=== PATIENT | male | born 2000 | race Two or more races ===

== ENCOUNTER 2023-11-29 14:45 | Observation (INO) ==
--- NOTE | 2023-11-29 14:55 | ED Triage Note ---
Date of Service November 29, 2023 Provider in Triage Author: Jung Vela History of Present Illness This patient was briefly evaluated while in triage. An abbreviated physical exam was performed. This patient is a 23-year-old Male who presents to the ED for evaluation of abd pain and vomiting since 1 am with nausea and vomiting. No close contacts with similar symptoms. No diarrhea. Physical Exam GENERAL: 23 year old male. In no acute distress. SKIN: No lesions or rashes. HEART: Regular rate and rhythm. LUNGS: Clear to auscultation. ABDOMEN: Bowel sounds normoactive. No guarding or rigidity. Generalized periumbilical tenderness to palpation. NEURO: Alert and oriented. No deficits. MUSCULOSKELETAL: No deformities to inspection of the extremities. PSYCH: Patient is pleasant and answers all questions appropriately. Initial orders for labs and / or imaging were placed and patient was placed in the waiting area until a bed is available. Please see further documentation for the full ED course.
[2023-11-29 16:00] LABS: Basophils # (auto) 0.03 K/uL (0.00-0.20); Basophils % (auto) 0.2 %; Eosinophils # (auto) 0.01 K/uL (0.00-0.50); Eosinophils % (auto) 0.1 %; Hematocrit (blood only) 50.8 % (42.0-52.0); Hemoglobin 16.8 g/dl (14.0-18.0); Immature Granulocytes # (auto) 0.06 K/uL (0.01-0.20); Immature Granulocytes % (auto) 0.3 %; Lymphocytes # (auto) 1.35 K/uL (1.20-3.40); Lymphocytes % (auto) 7.4 %; Mean Corpuscular Hemoglobin 23.9 pg (25.0-34.0); Mean Corpuscular Hgb Conc 33.1 g/dL (32.0-36.0); Mean Corpuscular Volume 72.4 fL (80.0-100.0); Mean Platelet Volume 9.8 fL (9.4-12.4); Monocytes # (auto) 0.67 K/uL (0.11-0.59); Monocytes % (auto) 3.7 %; Neutrophils # (auto) 16.04 K/uL (1.40-6.50); Neutrophils % (auto) 88.3 %; Platelet Count 378 K/uL (130-400); RDW Coefficient of Variation 16.6 % (11.5-14.5); RDW Standard Deviation 37.2 fL (36.4-46.3); Red Blood Count 7.02 M/uL (4.70-6.10); White Blood Count 18.16 K/ul (4.8-10.8)
[2023-11-29 16:21] LABS: Albumin Globulin Ratio 1.5 (0.9-2); Albumin Level 5.2 gm/dl (3.4-5.0); BUN Creatinine Ratio 12.8 (10-20); Bilirubin,Total 0.5 mg/dl (0.2-1.0); Calcium 10.4 mg/dl (8.6-10.3); Creatinine Clr Calc Pharmacy 210.5 ml/min; Est GFR (African American) 148.5 ml/min; Est GFR (Non-African American) 128.1 ml/min; Globulin 3.5 gm/dl (2.5-4.0); Potassium 3.9 mmol/L (3.5-5.1); Total Protein 8.7 gm/dl (6.0-8.3)
[2023-11-29] MEDS: OPTIRAY 320 125ml IV ONE (18:31)
--- NOTE | 2023-11-29 19:09 | Emergency Department Note ---
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 He reports he attempted to eat something this afternoon at 1300 but vomited it immediately and so has not been able to eat or drink. He denies fevers. He denies any cough or congestion. Denies any diarrhea. He denies any medical problems and does not take medications on regular basis. He reports his abdominal pain had subsided while waiting in the emergency department for testing to result. Of note, the patient did arrive to emergency department during time of high volume, acuity and prolonged emergency department waiting times. Critical pathways initiated from triage. On evaluation the patient is uncomfortable no distress, afebrile heart in 100s and blood pressure 160s/70s in the setting of discomfort but is otherwise stable. He appears clinically dry. He has mild point tenderness in the right lower quadrant without guarding or rebound. WBC 18 K with neutrophil predominance with no left shift. H/H and platelets within normal limits. Chemistry without metabolic acidosis. Electrolytes and LFTs without significant abnormality. Lipase not elevated. CT of the abdomen pelvis was completed and demonstrates evidence of uncomplicated appendicitis. I did update the patient and informed him of plan for general surgery consultation. Case was discussed with Chavez Smith, general surgery PAC with Dr. Turner, general surgery. The patient had decided that he did not want to proceed with surgery initially but did agree with general surgery to be admitted to the hospital for IV antibiotics. IV Zosyn ordered per discussion with general surgery. Appreciate consultation and recommendations. Further management per surgery service. Triage Nursing notes reviewed and agree them. Prior/external medical records reviewed Vital Signs: reviewed Differential diagnosis: Appendicitis, testicular torsion, infections, diverticulitis, UTI, obstruction, mesenteric ischemia, aortic pathology, inflammatory bowel disease, renal colic, PUD, pancreatitis, biliary pathology, hernia, volvulus, constipation, as well as other pathologies. ER treatment provided: See below. Diagnostics interpreted by me: Cardiac Monitoring: An order for continuous cardiac monitoring was placed and demonstrated sinus tachycardia, 110 bpm, no ectopy. Laboratory studies: See below Imaging studies: See below Consultation(s): Chavez Smith, general surgery PAC with Dr. 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 He reports he attempted to eat something this afternoon at 1300 but vomited it immediately and so has not been able to eat or drink. He denies fevers. He denies any cough or congestion. Denies any diarrhea. He denies any medical problems and does not take medications on regular basis. He reports his abdominal pain had subsided while waiting in the emergency department for testing to result. ROS: See above HPI for pertinent positives & negatives. A total of 10 systems reviewed and were otherwise negative. VITALS:See Below PHYSICAL EXAMINATION: GENERAL: Awake, alert, uncomfortable-appearing, in no distress, BMI 42.3. HENT: Normocephalic, atraumatic. Oropharynx with dry mucous membranes and otherwise unremarkable. EYES: Normal conjunctiva. Sclera non-icteric. NECK: Supple. No nuchal rigidity. FROM. No JVD. RESPIRATORY: Clear to auscultation. CARDIAC: Regular rate, normal rhythm. Extremities warm and well perfused. Pulses equal. ABDOMEN: Soft, non-distended. Mild point tenderness in the right lower quadrant without guarding or rebound. No rebound or guarding. No masses. RECTAL: Deferred. MUSCULOSKELETAL: Chest examination reveals no tenderness. The back is symmetrical on inspection without obvious abnormality. There is no CVA tenderness to palpation. No joint edema. LOWER EXTREMITIES: Calves are equal size bilaterally and non-tender. No edema. No discoloration. NEURO: Normal sensorium. No sensory or motor deficits noted. SKIN: No rash or jaundice noted. Adalberto Allen MD Past Med/Surg History Medical History BMI 40.0-44.9, adult Social History Smoking Status: Never smoker Hx Alcohol Use: No Hx Substance Use: No Preferred Language: Estonian Current Living Situation: Other Current Living Situation Comment: College, lives with a roommate Feels Safe at Home: Yes Safety Concerns: Feels Safe At This Time Allergies Allergies Allergy/AdvReac Type Severity Reaction Status Date / Time No Known Allergies Allergy Verified 11/29/23 19:13 Home Meds Home Medications Medication Instructions Recorded Confirmed cholecalciferol (vitamin D3) 125 250 mcg PO DAILY 11/29/23 11/29/23 mcg (5,000 unit) tablet (Vitamin D3) Results & Data (ED) Vital Signs Vital Signs - 24 hr 11/29/23 14:52 11/29/23 18:58 Temperature 36.8 C Temperature Source Temporal Artery Scan Pulse Rate 110 H Pulse Rate [Finger] 105 H Respiratory Rate 18 16 Respiratory Depth Normal Blood Pressure 143/81 H Blood Pressure [Right Arm] 160/79 H Blood Pressure Mean 101 Blood Pressure Mean [Right Arm] 106 Blood Pressure Position Sitting Pulse Oximetry 97 98 Oxygen Delivery Method Room Air Room Air Sepsis Recent Fever Within 48 Hours No Sepsis New/Unexplained Change in Mental Status No Sepsis Action Taken by Nursing No Action Required Laboratory Data Attestation: I reviewed the patient's lab results. 11/29/23 15:30 11/29/23 15:30 Lab Results 11/29/23 Range/Units 15:30 WBC 18.16 H (4.8-10.8) K/ul RBC 7.02 H (4.70-6.10) M/uL Hgb 16.8 (14.0-18.0) g/dl Hct 50.8 (42.0-52.0) % MCV 72.4 L (80.0-100.0) fL MCH 23.9 L (25.0-34.0) pg MCHC 33.1 (32.0-36.0) g/dL RDW Std Deviation 37.2 (36.4-46.3) fL RDW Coeff of Jose 16.6 H (11.5-14.5) % Plt Count 378 (130-400) K/uL MPV 9.8 (9.4-12.4) fL Immature Gran % (Auto) 0.3 % Neut % (Auto) 88.3 % Lymph % (Auto) 7.4 % Petroleum % (Auto) 3.7 % Eos % (Auto) 0.1 % Baso % (Auto) 0.2 % Neut # (Auto) 16.04 H (1.40-6.50) K/uL Lymph # (Auto) 1.35 (1.20-3.40) K/uL Petroleum # (Auto) 0.67 H (0.11-0.59) K/uL Eos # (Auto) 0.01 (0.00-0.50) K/uL Baso # (Auto) 0.03 (0.00-0.20) K/uL Immature Gran # (Auto) 0.06 (0.01-0.20) K/uL Sodium 137 (136-145) mmol/L Potassium 3.9 (3.5-5.1) mmol/L Chloride 98 (98-107) mmol/L Carbon Dioxide 26 (21-32) mmol/L Anion Gap 13 H (3-11) BUN 10 (6-23) mg/dl Creatinine 0.78 (0.6-1.4) mg/dl Est Cr Clr Drug Dosing 210.5 ml/min Est GFR ( Amer) 148.5 ml/min Est GFR (Non-Af Amer) 128.1 ml/min BUN/Creatinine Ratio 12.8 (10-20) Glucose 115 H (70-99(Fasting)) mg/dl Calcium 10.4 H (8.6-10.3) mg/dl Total Bilirubin 0.5 (0.2-1.0) mg/dl AST 20 (13-39) U/L ALT 29 (7-52) U/L Alkaline Phosphatase 74 (34-104) U/L Total Protein 8.7 H (6.0-8.3) gm/dl Albumin 5.2 H (3.4-5.0) gm/dl Globulin 3.5 (2.5-4.0) gm/dl Albumin/Globulin Ratio 1.5 (0.9-2) Lipase 6 L (11-82) U/L Administered Medications Sodium Chloride (Nss) 1,000 mls @ 100 mls/hr IV .Q10H DEEPTHI Stop: 12/29/23 20:14 Last Admin: 11/29/23 22:04 Dose: 100 mls/hr Documented By: NAVDEEP Discontinued Medications Sodium Chloride (Nss) 1,000 mls @ 999 mls/hr IV .Q1H1M ONE Stop: 11/29/23 20:05 Last Infusion: 11/29/23 20:32 Dose: Infused Documented By: Admin: 11/29/23 19:28 Dose: 999 mls/hr Documented By: BE Acetaminophen (Ofirmev) 1,000 mg in 100 mls @ 400 mls/hr IV NOW STA Stop: 11/29/23 19:19 Last Infusion: 11/29/23 19:47 Dose: Infused Documented By: Admin: 11/29/23 19:32 Dose: 400 mls/hr Documented By: BE Cefoxitin Sodium (Mefoxin) 2,000 mg in 60 mls @ 100 mls/hr IV NOW STA Stop: 11/29/23 20:27 Last Admin: 11/29/23 20:06 Dose: Not Given Documented By: BE Piperacillin Sod/Tazobactam Sod (Zosyn) 4.5 gm in 100 mls @ 200 mls/hr IV NOW ONE Stop: 11/29/23 20:34 Last Infusion: 11/29/23 21:08 Dose: Infused Documented By: Admin: 11/29/23 20:31 Dose: 200 mls/hr Documented By: BE Piperacillin Sod/Tazobactam Sod (Zosyn) 4.5 gm in 100 mls @ 200 mls/hr IV NOW ONE Stop: 11/29/23 20:33 Last Admin: 11/29/23 20:31 Dose: Not Given Documented By: BE Ioversol (Optiray 320 125ml) 117 ml IV ONCE ONE Stop: 11/29/23 18:31 Last Admin: 11/29/23 18:31 Dose: 117 ml Documented By: MARGARITA Ondansetron HCl (Ondansetron Inj 2 Mg/Ml 2 Ml Vial) 4 mg IV NOW STA Stop: 11/29/23 19:07 Last Admin: 11/29/23 19:30 Dose: 4 mg Documented By: BE Imaging Data Radiologist's Impression: Abdomen/Pelvis CT 11/29/23 14:[address] WITH IV CONTRAST CT DOSE: 1521.46 mGy.cm HISTORY: Acute periumbilical abdominal pain Periumbilical abd pain TECHNIQUE: Multiaxial CT images of the abdomen and pelvis were performed following the IV administration of 117 cc of Optiray, A dose lowering technique was utilized adhering to the principles of ALARA. COMPARISON STUDY: None. FINDINGS: The lung bases are clear. The liver, spleen, gallbladder, pancreas, kidneys, and adrenal glands are within normal limits. No bowel obstruction. The appendix is hyperemic, dilated and fluid-filled measuring up to 12 mm with adjacent inflammatory stranding. Trace free pelvic fluid. The pelvic organs are unremarkable. No suspicious lytic or blastic osseous lesions. IMPRESSION: Acute uncomplicated appendicitis. No pneumoperitoneum or abscess. ACT 112: Negative or not required by law. The above report was generated using voice recognition software. It may contain grammatical, syntax or spelling errors. Electronically signed by: Manuel Ibrahim M.D. 11/29/2023 7:05 PM Discharge Plan Visit Data Chief Complaint: Abdominal Pain Stated Complaint: ABD PAIN ED Provider: Adalberto Allen Discharge Problem: Appendicitis, Leukocytosis, Nausea & vomiting Patient Disposition: Admitted As Inpatient Discharge Instructions Interventions: ED Discharge Assessment Last Done: 11/29/23 21:10 Discharge Problem: Appendicitis Qualifiers: Appendicitis type: acute appendicitis Acute appendicitis type: unspecified acute appendicitis type Qualified Code(s): K35.80 - Unspecified acute appendicitis Leukocytosis Qualifiers: Leukocytosis type: unspecified Qualified Code(s): D72.829 - Elevated white blood cell count, unspecified Nausea & vomiting Qualifiers: Vomiting type: unspecified Qualified Code(s): R11.2 - Nausea with vomiting, unspecified
--- NOTE | 2023-11-29 19:09 | CT Scan Report ---
ABDOMEN AND PELVIS CT WITH IV CONTRAST CT DOSE: 1521.46 mGy.cm HISTORY: Acute periumbilical abdominal pain Periumbilical abd pain TECHNIQUE: Multiaxial CT images of the abdomen and pelvis were performed following the IV administrat ion of 117 cc of Optiray, A dose lowering technique was utilized adhering to the principles of ALARA . COMPARISON STUDY: None. FINDINGS: The lung bases are clear. The liver, spleen, gallbladder, pancreas, kidneys, and adrenal gl ands are within normal limits. No bowel obstruction. The appendix is hyperemic, dilated and fluid-betty led measuring up to 12 mm with adjacent inflammatory stranding. Trace free pelvic fluid. The pelvic o rgans are unremarkable. No suspicious lytic or blastic osseous lesions. IMPRESSION: Acute uncomplicated appendicitis. No pneumoperitoneum or abscess. ACT 112: Negative or not required by law. The above report was generated using voice recognition software. It may contain grammatical, syntax o r spelling errors. Electronically signed by: Manuel Ibrahim M.D. 11/29/2023 7:05 PM
[2023-11-29] MEDS: SODIUM CHLORIDE 0.9% 1,000 ML IV ONE (19:28)
[2023-11-29] MEDS: ONDANSETRON INJ 2 MG/ML 2 ML VIAL IV STA (19:30)
[2023-11-29] MEDS: ACETAMINOPHEN 1,000 MG/100 ML VIAL IV STA (19:32)
[2023-11-29] MEDS ORDERED: ONDANSETRON INJ 2 MG/ML 2 ML VIAL IV PRN (20:04)
[2023-11-29] MEDS ORDERED: MoRPHine SULFATE 4 MG/ML 1 ML CARP\\VIAL IV PRN (20:04)
[2023-11-29] MEDS ORDERED: ACETAMINOPHEN 1,000 MG/100 ML VIAL IV PRN (20:04)
[2023-11-29] MEDS: cefOXitin 2,000 MG/60 ML BAG IV STA (20:06)
--- NOTE | 2023-11-29 20:17 | History & Physical Report ---
<Statement entered by Zo Turner, DO - 11/30/23 03:09> This case was discussed with the surgical PA. Patient does not wish to undergo appendectomy at this time and wishes to try antibiotic therapy. Will f/u am labs and exam. Date of Service November 29, 2023 Assessment & Plan (1) Appendicitis: Plan: Due to the patient's clinical presentation, labs, and imaging he will be admitted to the hospital proceeding as follows: Analgesia will be provided Antiemetics to be provided IV fluids will be provided for hydration N.p.o. status will be implemented We will commence antibiotics in form of Zosyn and continue these on a scheduled basis We will repeat labs in the morning I had a discussion with the patient at the bedside informing him that he is known to have an acute appendicitis by CAT scan. This coupled with his elevated white blood cell count would prompt a recommendation that he undergo appendectomy. After discussion with the patient he does not wish to undergo surgical intervention. I did discuss with the patient that without surgical intervention there is a possibility that his appendix could burst but I cannot predict this in any reliable fashion. He did express his understanding. I discussed with the patient that if his appendix would burst this would require prolonged hospitalization with intravenous antibiotics and could be complicated by issues such as ileus and also make any subsequent surgical intervention more difficult I did discuss with the patient that although he does not wish to have surgery I would then recommend he be admitted to the hospital for intravenous antibiotics and he is agreeable to this. I did discuss with the patient again that without surgical intervention and despite the use of intravenous antibiotics he could still have a ruptured appendix that I again cannot predict in any reliable fashion. I discussed with the patient that pending how his clinical course unfolds he may require a prolonged hospitalization with intravenous antibiotics if he continues to refuse surgery. I also discussed with him that my attending physician, Dr. Soto will evaluate the patient in the morning and make further recommendations based on his clinical course as elaine notes that she may recommend surgery tomorrow but this is yet to be determined. Will use SCDs for DVT prevention, no chemical means due to planned surgery He will be a level 1 full code The above plan was discussed with my attending physician Dr. 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 Patient notes that approximately 1:00 AM on 11/29/2023 he developed some periumbilical abdominal pain that has since shifted to the right lower quadrant. He does not note any radiation of the pain. He does not report any modifying factors specifically stating that the pain was not much more severe with movement. He did have associated nausea and vomiting most recently at approximate 1:00 PM when he tried to eat a rice cake (this was his most recent oral intake). He denies any fevers, shakes, or chills. He has never had any abdominal surgery in the past. Since arrival to the hospital patient has had labs and imaging which I independent reviewed. CT scan of the abdomen pelvis was performed that showed the patient had a hyperemic appendix which was dilated and fluid-filled measuring approximately 12 mm. There is adjacent inflammatory stranding noted. Interpreting radiologist felt that this represented an acute uncomplicated appendicitis. There is no evidence of pneumoperitoneum or abscess. Labs included CBC her white blood cell count was elevated to 18.1. Hemoglobin and hematocrit along with the platelet count were all normal. Chemistry profile showed sodium and potassium as well as the BUN and creatinine were normal. The patient did not have any elevation of his LFTs or lipase. At the time of my interview the patient was resting comfortably in bed and he was in no distress. Concerning past medical history the patient says that he is known to have insulin resistance which she treats with diet and does not take any medications Concerning PSHx has never had surgery He denies any allergies Concerning medicines he reports that he only takes a vitamin D supplement daily Concerning social history he does not smoke or vape Concerning family history he notes that diabetes runs in his family Allergies Allergy/AdvReac Type Severity Reaction Status Date / Time No Known Allergies Allergy Verified 11/29/23 19:13 Home Medications Medication Instructions Recorded Confirmed Type cholecalciferol (vitamin D3) 125 250 mcg PO DAILY 11/29/23 11/29/23 History mcg (5,000 unit) tablet (Vitamin D3) Past Med/Surg History Social History Smoking Status: Never smoker Preferred Language: Tamaz[place] Feels Safe at Home: Yes Review of Systems Constitutional: no fever and no chills Eyes: + corrective lenses Ear, Nose, Mouth, Throat: no hearing loss Respiratory: no cough and no dyspnea Cardiovascular: no chest pain Gastrointestinal: as per Subjective / HPI Genitourinary: no dysuria Musculoskeletal: no back pain Integumentary: no rash Neurologic: no localized weakness Physical Exam Constitutional: WD/WN, vitals as above + obese Eyes: no conjunctival abnormality ENMT: Ears: no hearing impairment and no external ear abnormality Mouth: no oropharynx abnormality Neck: trachea midline Respiratory: Breath sounds are present bilaterally without rales, rhonchi, or wheezing. He was not using accessory muscles to aid in respiration. Breath sounds were slightly decreased at the bases Cardiovascular: Rate/Rhythm: regular rate and regular rhythm Gastrointestinal (Abdomen): Abdomen is rotund and soft. It is nonrigid. Bowel sounds are present. There is no rebound tenderness or guarding. The patient only had minute tenderness with very deep and forceful palpation in the right lower quad Musculoskeletal: No calf tenderness Skin: no rashes Neurologic: moves all extremities Psychiatric: A+Ox3, euthymic affect Results & Data Results & Data Vital Signs (Past 12 Hours) Vital Signs Temp Pulse Pulse Resp BP BP Pulse Ox 11/29/23 18:58 105 H 16 160/79 H 98 11/29/23 14:52 36.8 C 110 H 18 143/81 H 97 O2 Del Method 11/29/23 18:58 Room Air 11/29/23 14:52 Room Air PG Care Time/CCT Total # of Minutes Spent Total Time Spent with Patient: Total time spent is greater than 50% in coordination of care (as documented) at patient's floor/unit and/or counseling patient: Coding Level of Care Code 97362 INT INP/OBS CARE 3/75MIN Diagnoses Appendicitis K37
[2023-11-29] MEDS: PIPERACILLIN/TAZOBACTAM 4.5 GM/100 ML BAG IV ONE ×2 (20:31)
[2023-11-29] MEDS: SODIUM CHLORIDE 0.9% 1,000 ML IV SCH (22:04)
[2023-11-30] MEDS: PIPERACILLIN/TAZOBACTAM 4.5 GM in DEXTROSE 5% MINI-B 100 ML IV SCH (01:54)
[2023-11-30 07:29] LABS: Basophils # (auto) 0.05 K/uL (0.00-0.20); Basophils % (auto) 0.4 %; Eosinophils # (auto) 0.12 K/uL (0.00-0.50); Eosinophils % (auto) 0.9 %; Hemoglobin 15.8 g/dl (14.0-18.0); Immature Granulocytes # (auto) 0.06 K/uL (0.01-0.20); Immature Granulocytes % (auto) 0.4 %; Lymphocytes # (auto) 3.57 K/uL (1.20-3.40); Lymphocytes % (auto) 25.4 %; Mean Corpuscular Hemoglobin 23.2 pg (25.0-34.0); Mean Corpuscular Volume 74.9 fL (80.0-100.0); Mean Platelet Volume 9.7 fL (9.4-12.4); Monocytes % (auto) 6.4 %; Neutrophils # (auto) 9.37 K/uL (1.40-6.50); Neutrophils % (auto) 66.5 %; Platelet Count 365 K/uL (130-400); RDW Coefficient of Variation 17.1 % (11.5-14.5); Red Blood Count 6.81 M/uL (4.70-6.10); White Blood Count 14.07 K/ul (4.8-10.8)
[2023-11-30 07:42] LABS: BUN Creatinine Ratio 9.2 (10-20); Calcium 9.3 mg/dl (8.6-10.3); Creatinine Clr Calc Pharmacy 167.5 ml/min; Est GFR (African American) 126.3 ml/min; Potassium 3.6 mmol/L (3.5-5.1)
--- NOTE | 2023-11-30 08:55 | Surgery Progress Note ---
Date of Service November 30, 2023 Assessment & Plan (1) Uncomplicated acute appendicitis: Plan: Patient is HD stable, without F/C and is improved. Leukocytosis is improved from ED presentation. Patient continues to refuse surgery after I spoke with him this am regarding standard treatment practices currently in the [place] in a young, healthy patient. I also explained the risk of failure to respond to antibiotics alone although there is a low likelihood of this happening in his case and he will probably do ok with this approach. That being said, I also made him aware that there is a high risk that he will develop appendicitis again and at that time could suffer a rupture. For this reason, if he improves completely with antibiotics alone, I have recommended an interval appendectomy in 6 weeks after this is resolved. He expressed understanding and had no questions. Continue IV antibiotics for now and keep NPO for today with IVF. F/U am labs tomorrow. Admission and Anticipated Discharge Date Admission Date: November 29, 2023 Subjective Patient was seen this am. He was sleeping well on his abdomen when I entered the room this am and when awakened to ask how he felt he says he feels good. He states he still does not want surgery and would prefer to proceed with antibiotics only. Denies any complaints at all. Physical Exam Constitutional: + obese; no acute distress, not in distr ess and not diaphoretic Respiratory: normal respiratory effort; no respiratory distress, no labored breathing and does not use accessory muscles Gastrointestinal (Abdomen): minimal to no TTP Results & Data Vital Signs (Past 12 Hours) Vital Signs Temp Pulse Resp BP Pulse Ox O2 Del Method 11/30/23 07:47 36.7 C 61 18 121/78 93 Room Air 11/30/23 01:58 36.8 C 85 16 133/74 95 Room Air 11/29/23 21:00 99 H 18 134/97 98 Room Air Laboratory Results WBC 14,000 today from 18,000 PG Care Time/CCT Total # of Minutes Spent Total Time Spent with Patient: Total time spent is greater than 50% in coordination of care (as documented) at patient's floor/unit and/or counseling patient: [place] [address] SUB INP/OBS CARE 1/25MIN Patient Type Established Diagnoses Uncomplicated acute appendicitis K35.80
[2023-12-01 07:42] LABS: Basophils # (auto) 0.06 K/uL (0.00-0.20); Basophils % (auto) 0.7 %; Eosinophils # (auto) 0.14 K/uL (0.00-0.50); Eosinophils % (auto) 1.5 %; Hematocrit (blood only) 46.5 % (42.0-52.0); Hemoglobin 14.9 g/dl (14.0-18.0); Immature Granulocytes # (auto) 0.02 K/uL (0.01-0.20); Immature Granulocytes % (auto) 0.2 %; Lymphocytes # (auto) 2.59 K/uL (1.20-3.40); Lymphocytes % (auto) 28.2 %; Mean Corpuscular Hemoglobin 23.6 pg (25.0-34.0); Mean Corpuscular Volume 73.7 fL (80.0-100.0); Mean Platelet Volume 9.5 fL (9.4-12.4); Monocytes # (auto) 0.76 K/uL (0.11-0.59); Monocytes % (auto) 8.3 %; Neutrophils # (auto) 5.61 K/uL (1.40-6.50); Neutrophils % (auto) 61.1 %; Platelet Count 270 K/uL (130-400); RDW Coefficient of Variation 15.9 % (11.5-14.5); RDW Standard Deviation 39.2 fL (36.4-46.3); Red Blood Count 6.31 M/uL (4.70-6.10); White Blood Count 9.18 K/ul (4.8-10.8)
[2023-12-01 08:23] LABS: BUN Creatinine Ratio 11.1 (10-20); Calcium 8.9 mg/dl (8.6-10.3); Creatinine Clr Calc Pharmacy 182.4 ml/min; Est GFR (Non-African American) 120.8 ml/min; Potassium 3.9 mmol/L (3.5-5.1)
--- NOTE | 2023-12-01 12:22 | Surgery Progress Note ---
Date of Service December 01, 2023 Assessment & Plan (1) Uncomplicated acute appendicitis: Plan: Patient here with abdominal pain, CT with evidence of acute appendicitis Patient refused surgery despite multiple discussions He is currently doing well on IV abx (zosyn). WBC normalized to 9. Vitals stable and patient afebrile Abdomen soft and non tender Will advance diet and see how he fairs, if goes well dispo later today on a course of po abx discussed with dr. resendiz who would like to see the pt in follow up in about 2 weeks time return precautions reviewed with patient Admission and Anticipated Discharge Date Admission Date: November 29, 2023 Subjective Patient reports feeling well. Denies pain. no nausea/vomiting. wants to go home Physical Exam Physical Exam: awake/alert, no distress Gastrointestinal (Abdomen): Percussion/Palpation: abdomen soft; abdomen nontender Results & Data Vital Signs (Past 12 Hours) Vital Signs Temp Pulse Resp BP Pulse Ox O2 Del Method 12/01/23 07:20 98.1 F 81 16 121/67 97 Room Air PG Care Time/CCT Total # of Minutes Spent Total Time Spent with Patient: Total time spent is greater than 50% in coordination of care (as documented) at patient's floor/unit and/or counseling patient: Coding Level of Care Code 43630 SUB INP/OBS CARE 25MIN Diagnoses Uncomplicated acute appendicitis K35.80
--- NOTE | 2023-12-05 07:50 | Discharge Summary ---
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 Patient notes that approximately 1:00 AM on 11/29/2023 he developed some periumbilical abdominal pain that has since shifted to the right lower quadrant. He does not note any radiation of the pain. He does not report any modifying factors specifically stating that the pain was not much more severe with movement. He did have associated nausea and vomiting most recently at approximate 1:00 PM when he tried to eat a rice cake (this was his most recent oral intake). He denies any fevers, shakes, or ch ills. He has never had any abdominal surgery in the past. Since arrival to the hospital patient has had labs and imaging which I independent reviewed. CT scan of the abdomen pelvis was performed that showed the patient had a hyperemic appendix which was dilated and fluid-filled measuring approximately 12 mm. There is adjacent inflammatory stranding noted. Interpreting radiologist felt that this represented an acute uncomplicated appendicitis. There is no evidence of pneumoperitoneum or abscess. Labs included CBC her white blood cell count was elevated to 18.1. Hemoglobin and hematocrit along with the platelet count were all normal. Chemistry profile showed sodium and potassium as well as the BUN and creatinine were normal. The patient did not have any elevation of his LFTs or lipase. At the time of my interview the patient was resting comfortably in bed and he was in no distress. Concerning past medical history the patient says that he is known to have insulin resistance which she treats with diet and does not take any medications Concerning PSHx has never had surgery He denies any allergies Concerning medicines he reports that he only takes a vitamin D supplement daily Concerning social history he does not smoke or vape Concerning family history he notes that diabetes runs in his family Principal Diagnosis acute appendicitis Discharge Exam awake/alert, no distress Gastrointestinal (Abdomen) Percussion/Palpation: abdomen soft; abdomen nontender Discharge Data Allergies Allergy/AdvReac Type Severity Reaction Status Date / Time No Known Allergies Allergy Verified 11/29/23 19:13 Consultations 11/29/23 20:13 ED Decision to Admit Stat Ordered Studies 11/29/23 14:55 CT abd pelvis IV con only Stat Hospital Course (1) Uncomplicated acute appendicitis: This is a 23yM with no significant past medical history who presented to the [facility] on 11/29/23 with complaints of abdominal pain. WBC [address] a/p was performed that revealed evidence of acute uncomplicated appendicitis. Patient had mild tenderness to palpation in the RLQ. The patient was made NPO with IVF, started on IV abx, and was admitted under the surgical service. After discussions with the patient regarding treatment options, including surgical intervention, he opted for conservative management with IV abx and refused surgical intervention. The risks of this decision were discussed including but not limited to perforation, abscess formation, prolonged hospitalization, sepsis, etc. Patient expressed understanding. He was maintained on IV zosyn and bowel rest. Patient's WBC downtrended during his hospitalization. On 12/01 WBC 9 and vitals signs stable, pt afebrile. He was trialed on a regular diet which he tolerated well without issues. His presenting symptoms were improved as he was without nausea/vomiting or pain. On exam abdomen soft and non tender. As the patient opted for non surgical intervention and he was doing well, the decision was made to send the patient home on a course of oral antibiotics with close follow up in the clinic. Return precautions were reviewed and the patient expressed understanding. He was discharged to home without event with instructions to see Dr. Turner in 1-2 weeks time. Total Time Total Time Spent Total Time Spent (In Minutes): 15 Discharge Plan Discharge Items Patient Disposition: Home - Self-Care Reason For Visit: APPY Discharge Diagnosis: acute appendicitis Activity: Per Instructions section Lifting: Gradually increase as tolerated Bathing: No limitations Exercise/Sports: Wait until after follow-up appointment Driving/Machine Use: Resume 1 day after discharge Non-emergency contact: Primary Care Provider and Surgeon Call non-emergency contact if: you have any medication questions, your symptoms worsen, you have a fever and your temperature is above 101.5 Follow-up/Referrals: [facility] [Primary Care Provider] - Zo Turner DO [Physician] - 12/14/23 9:30 am ( follow up in clinic within 2 weeks) Diet: Regular Addtl Attending Provider Instructions: please complete the full course of antibiotic prescribed to you please call the office with any worsening pain, fevers, nausea/vomiting, concerns Pending Studies at Discharge: No Stand-Alone Forms: [facility], Work/School Release, Smoking Cessation Medications and DC Order Prescriptions: New amoxicillin-pot clavulanate 875-125 mg tablet 1 tab PO BID 6 Days Qty: 12 0RF Continued cholecalciferol (vitamin D3) [Vitamin D3] 125 mcg (5,000 unit) Tablet 250 mcg PO DAILY Discharge Orders: Discharge Order (Routine); Ordered 12/01/23 Ordered By: Eve Britton/Other Patient Handouts: Appendectomy, What Is Appendicitis? Admission Data Admit Date/Time: 11/29/23 20:19 Attending Provider: Zo Turner Admit Provider: Zo Turner Primary Care Provider: [facility] Other Providers: Zo Turner Other Interventions: Discharge Summary Assessment (RN) Last Done: 12/01/23 12:29 Coding Level of Care Code 96805 IN/OBS DISCH 30 MIN/LESS Diagnoses Uncomplicated acute appendicitis K35.80
== END 2023-12-01 14:03 | disposition home or self-care (01) | DRG 394 ==
LOC: ED 14:45 → 3N 20:19 → INTOOBSV 20:19 → 3N 21:10